=== PATIENT | male | born 1995 | race Caucasian/White ===

== ENCOUNTER 2023-01-27 05:32 | Emergency (ER) | payer SELFPAY ==
[~2023-01-27] VITALS: Ht 175.3 cm; Wt 93.0 kg
[~2023-01-27 05:32] MED LIST: NAPROSYN500 MG OR; NO HOME MEDS; ULTRAM50 M1 PO
[2023-01-27] MEDS ORDERED: NAPROXEN375 MG PO (06:36)
[2023-01-27] MEDS ORDERED: VIBRAMYCIN100 M2 PO (06:36)
[2023-01-27 07:26] VITALS: BP 149/103
[2023-01-27 07:30] VITALS: BP 139/110
[2023-01-27 08:03] VITALS: BP 139/110
== END 2023-01-27 07:35 | disposition home or self-care (01) | DRG 603 ==
LOC: ED 05:32
DX: L03.113 Cellulitis of right upper limb (principal); F17.200 Nicotine dependence, unspecified, uncomplicated

== ENCOUNTER 2024-07-30 15:21 | Emergency (ER) | payer SELFPAY ==
[~2024-07-30] VITALS: Ht 180.3 cm; Wt 100.0 kg
[~2024-07-30 15:21] MED LIST changes: +CLEOCIN300 MG PO; +NAPROXEN375 MG PO; +VIBRAMYCIN100 M2 PO
[2024-07-30] MEDS ORDERED: PENICILLN VK500 MG PO (15:50)
[2024-07-30] MEDS ORDERED: NAPROXEN500 MG PO (15:50)
[2024-07-30] MEDS ORDERED: PENicillin V POTASSIUM 500 MG/TAB PO ONE (15:50)
[2024-07-30] MEDS ORDERED: KETOROLAC TROMETHAMINE 30 MG/ML SDV IM ONE (15:50)
[2024-07-30 16:10] VITALS: BP 143/95
== END 2024-07-30 16:15 | disposition home or self-care (01) | DRG 159 ==
LOC: ED 15:21
DX: K04.7 Periapical abscess without sinus (principal); K02.9 Dental caries, unspecified; F17.210 Nicotine dependence, cigarettes, uncomplicated